=== PATIENT | female | born 1945 | race Caucasian/White ===

== ENCOUNTER 2016-11-10 13:02 | Observation (INO) | payer MEDICARE, OTHER ==
[2016-11-10] MEDS ORDERED: XALATAN2.5 M1 LEFT EYE (14:55)
[2016-11-10] MEDS ORDERED: TIMOLOL (14:57)
[2016-11-10] MEDS ORDERED: DORZOLAMIDE (14:57)
[2016-11-10] MEDS ORDERED: FLONASE ALLERG9.9 ML (14:58)
[2016-11-10] MEDS ORDERED: CLARITIN10 M6 PO (14:58)
[2016-11-10 18:03] LABS: BASO % 0.6 % (0-2); EOS % 5.3 % (0-7); EOSINOPHIL ABSOLUTE COUNT 0.3 tho/cmm (0.0-0.7); HCT-HEMATOCRIT 42.8 % (34.0-49.0); HGB-HEMOGLOBIN 14.3 gm/dl (12.0-15.5); IMMATURE GRANULOCYTES ABSOLUTE 0.01 tho/cmm (0-0.03); IMMATURE GRANULOCYTES PERCENT 0.2 % (0-0.3); LYMPH ABSOLUTE COUNT 1.6 tho/cmm (0.8-4.5); MCH (MEAN CORPUSCULAR HGB) 32.1 pg (28.0-32.0); MCHC MEAN CORPUSCULAR HGB CONC 33.4 % (32.0-36.0); MEAN PLATELET VOLUME 9.3 cmc (9.4-12.4); MONO % 11.3 % (0-12); MONOCYTE ABSOLUTE COUNT 0.7 tho/cmm (0.0-1.2); NEUTROPHIL ABSOLUTE COUNT 3.7 tho/cmm (1.6-8.0); NEUTROPHIL-AUTOMATED 3.7 tho/cmm (1.6-8.0); NEUTROPHILS % 57.6 % (40-80); PLATELET COUNT 191 tho/cmm (150-450); RED BLOOD COUNT 4.46 mil/cmm (4.00-5.20); RED CELL DISTRIBUTION WIDTH 12.7 % (12.4-16.4); WHITE BLOOD COUNT 6.4 tho/cmm (4.0-10.0)
[2016-11-10 18:16] LABS: ANION GAP 11 mmol/L (0-20); BLOOD UREA NITROGEN 14 mg/dl (6-24); CALCIUM 9.6 mg/dl (8.5-10.5); CARBON DIOXIDE-VENOUS 28 mmol/L (22-32); CHLORIDE 106 mmol/l (96-110); CREATININE 0.67 mg/dl (0.50-1.10); GLUCOSE 81 mg/dL (70-110); POTASSIUM 3.9 mmol/L (3.7-5.1); SODIUM 141 mmol/L (135-145); eGFR VALUE FOR BLACK >60 mL/Min
[2016-11-11 05:48] LABS: BASO % 0.8 % (0-2); EOSINOPHIL ABSOLUTE COUNT 0.4 tho/cmm (0.0-0.7); HCT-HEMATOCRIT 40.7 % (34.0-49.0); HGB-HEMOGLOBIN 13.3 gm/dl (12.0-15.5); LYMPH % 25.8 % (20-45); LYMPH ABSOLUTE COUNT 1.3 tho/cmm (0.8-4.5); MCH (MEAN CORPUSCULAR HGB) 31.1 pg (28.0-32.0); MCHC MEAN CORPUSCULAR HGB CONC 32.7 % (32.0-36.0); MCV (MEAN CELL VOLUME) 95.3 fl (82.0-96.0); MEAN PLATELET VOLUME 9.5 cmc (9.4-12.4); MONO % 10.5 % (0-12); MONOCYTE ABSOLUTE COUNT 0.5 tho/cmm (0.0-1.2); NEUTROPHIL ABSOLUTE COUNT 2.9 tho/cmm (1.6-8.0); NEUTROPHIL-AUTOMATED 2.9 tho/cmm (1.6-8.0); NEUTROPHILS % 55.9 % (40-80); PLATELET COUNT 168 tho/cmm (150-450); RED BLOOD COUNT 4.27 mil/cmm (4.00-5.20); RED CELL DISTRIBUTION WIDTH 12.6 % (12.4-16.4); WHITE BLOOD COUNT 5.2 tho/cmm (4.0-10.0)
[2016-11-11 06:05] LABS: ANION GAP 10 mmol/L (0-20); BLOOD UREA NITROGEN 13 mg/dl (6-24); CALCIUM 8.9 mg/dl (8.5-10.5); CARBON DIOXIDE-VENOUS 28 mmol/L (22-32); CHLORIDE 108 mmol/l (96-110); CREATININE 0.62 mg/dl (0.50-1.10); GLUCOSE 85 mg/dL (70-110); POTASSIUM 3.9 mmol/L (3.7-5.1); SODIUM 142 mmol/L (135-145); eGFR VALUE FOR BLACK >60 mL/Min
[2016-11-11] MEDS ORDERED: XARELTO15 M1 PO (12:11)
== END 2016-11-11 12:45 ==
LOC: CTSCAN 13:02 → CAR1 14:39
PROVIDERS: Internal Medicine; ADMIT Hospitalist
DX: I26.99 Other pulmonary embolism without acute cor pulmonale (principal); I82.432 Acute embolism and thrombosis of left popliteal vein; I82.442 Acute embolism and thrombosis of left tibial vein; J32.9 Chronic sinusitis, unspecified; H40.9 Unspecified glaucoma; M79.1 Myalgia; R59.9 Enlarged lymph nodes, unspecified; Z88.1 Allergy status to other antibiotic agents; Z79.899 Other long term (current) drug therapy; Z98.890 Other specified postprocedural states
CPT/HCPCS: G0378; G8978-GP-CI; G8979-GP-CI; G8980-GP-CI; J1650; Q9967